=== PATIENT | female | born 1975 | race Caucasian/White ===

== ENCOUNTER 2023-02-20 10:41 | Outpatient (CLI) | payer BC, SELFPAY ==
--- NOTE | 2023-02-26 11:39 | WPDHOLTEREM ---
Holter/Event Monitor Holter/Event Monitor Date of procedure: 02/20/23 Holter/Event Procedure: 48 Hr Holter Monitor Indications: Tachycardia Conclusion: 1. 48 hour holter monitor on 02/20/23. 2. Underlying rhythm is sinus rhythm. HR range 51-141 bpm; average HR 83 bpm. HR at 141 bpm was at 18:59. 3. There are 13 premature supraventricular complexes and 1 supraventricular couplet. No supraventricular tachycardia. 4. No premature ventricular complexes. No ventricular tachycardia. 5. No sinoatrial or atrioventricular blocks. No significant pauses greater than 2 seconds. 6. Patient reports symptoms of chest pain, shortness of breath, rapid heart rate, and panic attack which demonstrate sinus rhythm, HR range 77-103 bpm.
== END 2023-02-20 10:42 | disposition home or self-care (01) ==
LOC: ANHCARD 10:42
PROVIDERS: PCP Family Medicine; Visit Provider Family Medicine
DX: R00.0 Tachycardia, unspecified (principal)
CPT/HCPCS: 93225; 93226

== ENCOUNTER 2023-03-16 15:36 | Emergency (ER) | payer BC, SELFPAY ==
--- NOTE | ~2023-03-16 | CT_ITS ---
EXAMINATION: 1. CT brain wo con 2. CT orbit bilateral without contrast DATE: 03/16/2023 16:41 INDICATION: Baseball injury, left orbit TECHNIQUE: Computed tomography (CT) of the head was performed without intravenous contrast. CT of the orbits bones was performed without intravenous contrast. Automated exposure control and iterative re construction technique were employed. The dose-length product was 529.67 (accession [id number]), 139.14 (accession [id number]) mGy-cm. COMPARISON: None. FINDINGS: BRAIN: No acute intracranial hemorrhage or extra-axial fluid collection. No hydrocephalus, mass, or herniation. No acute ischemic infarct detected. Unremarkable dural venous sinus attenuation. No acute osseous abnormality. Clear visualized paranasal sinuses and tympanomastoid cavities. FACE: Soft Tissues: No significant superficial soft tissue swelling. Facial bones: No evidence of an acute fracture in the visualized facial bones. Orbits: No evidence of an acute fracture. The globes are intact. The soft tissue planes of the orb its are maintained. Paranasal Sinuses: The paranasal sinuses are clear. Foreign Bodies: No evidence of radiopaque foreign bodies. Other: No evidence of a remote fracture. No lytic or blastic process seen in the facial bones. IMPRESSION: No acute intracranial process. No acute facial bone fracture. Reviewed, dictated and finalized at location K. IMPRESSION: No acute intracranial process. No acute facial bone fracture.
[2023-03-16 15:40] VITALS: BP 130/72; PULSE 95; RESP 15; TEMP 36.3; O2SAT 100
--- NOTE | 2023-03-16 16:05 | ED.EYEPROB ---
HPI - Eye Problem General Chief complaint: Eye Problems Stated complaint: Eye injury Time Seen by Provider: 03/16/23 16:10 Source: patient and family Mode of arrival: ambulatory Limitations: no limitations History of Present Illness HPI Narrative: 47 years old white female came to the emergency room complaining of left frontal headache and left eye pain. Patient got hit by a baseball to the left eye, sunglasses was on, did not break, fell off her face after the hit. Patient denies loss of consciousness or other injuries. Patient got panicky and had Xanax immediately prior to arrival. Related Data Home Medications Medication Instructions Recorded Confirmed amitriptyline 50 mg tablet 50 mg PO QHS 03/01/21 01/27/23 indomethacin 50 mg capsule 100 mg PO .prn 03/01/21 01/27/23 tizanidine 2 mg tablet 2 mg PO .prn 03/01/21 01/27/23 rimegepant 75 mg disintegrating 75 mg PO ONCE PRN 08/20/21 01/27/23 tablet (Nurtec ODT) escitalopram oxalate 5 mg tablet 5 mg PO DAILY 01/27/23 01/27/23 (Lexapro) Allergies Allergy/AdvReac Type Severity Reaction Status Date / Time prednisone Allergy Unknown UNKNOWN Verified 01/27/23 12:00 pregabalin Allergy Unknown UNKNOWN Verified 01/27/23 12:00 Review of Systems Review of Systems: All systems reviewed & are unremarkable except as noted in HPI and below PMFSH Past Medical History Medical History Body mass index [BMI] 25.0-25.9, adult (12/03/16) Chronic constipation Encounter for screening examination for sexually transmitted disease Erythromelalgia History of Chiari malformation Idiopathic chronic cold agglutinin disease Migraine syndrome Occipital neuralgia of left side Panic disorder with agoraphobia Remove/insert IUD Screening mammogram for breast cancer Screening mammogram, encounter for Surgical History Surgical History H/O adenoidectomy History of gynecological procedure (05/23/17) mirena iud insertion Hx of tonsillectomy Status post lumbar spine operative procedure for decompression of spinal cord 2006 Family History Family History Mother Diabetes mellitus CMT (cervical motion tenderness) Sibling Diabetes mellitus Lupus Grandparent Diabetes mellitus Cerebrovascular accident Grandparent Heart disease ALS (amyotrophic lateral sclerosis) Other Family history of amyotrophic lateral sclerosis Family history of malignant neoplasm Family history of malignant neoplasm of ovary Social History Social History Smoking status: Former smoker Smoking end date: 06/09/98 Alcohol intake: former Substance use: never Substance use type: does not use Lack of Transportation: No Lack of Food: Never True Current Housing: I Have Housing Concerned About Future Housing: No Difficulty Paying Gas/Electric Bills: No Difficulty Paying for Meds: No Currently Unemployed: No Education: Bachelor's Degree Difficulty w/ Childcare or Family Care: No Living arrangements: other Additional living arrangements comments: spouse Occupation/Education: occupation 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 Musculoskeletal: Normal range of yue
[2023-03-16] MEDS: IBUPROFEN 400 MG TABLET PO (16:55)
[2023-03-16] MEDS: ONDANSETRON HCL ODT 4 MG TABLET PO (16:56)
[2023-03-16] MEDS: HYDROcodone/acetaminophen (*CRX) 5-325 MG TABLET 1 TAB PO (16:56)
== END 2023-03-16 17:31 | disposition home or self-care (01) ==
PROVIDERS: Emergency Provider Emergency Medicine; PCP Family Medicine
DX: S05.92XA Unspecified injury of left eye and orbit, initial encounter (principal); R51.9 Headache, unspecified; I73.81 Erythromelalgia; D59.12 Cold autoimmune hemolytic anemia; F40.01 Agoraphobia with panic disorder; Z87.891 Personal history of nicotine dependence; W21.03XA Struck by baseball, initial encounter
CPT/HCPCS: 70450; 70480; 99284; A9270

== ENCOUNTER 2023-04-04 08:33 | Outpatient (CLI) | payer BC, SELFPAY ==
--- NOTE | 2023-04-04 08:45 | ECHO_ITS ---
Patient Info Name: Florence Valadez Age: 47 years : 1975 Gender: Female Ht: 62 in Wt: 150 lbs BSA: 1.74 m2 HR: 78 bpm BP: 125 / 71 mmHg Technical Quality: Fair Exam Date: 04/04/2023 9:02 AM Exam Location: [facility] Patient Status: Outpatient Admit Date: 04/04/2023 Staff Ordering Physician: Kye iKng DO Information Security Associate: Teresa Whitfield RDCS Attending Provider: Kye King DO Referring Physician: Christine STORM; Exam Type: CA echo doppler color flow Study Info Indications R00.0 - Tachycardia, unspecified Complete two-dimensional, color flow and Doppler transthoracic echocardiogram is performed. Summary 1. Complete two-dimensional, color flow and Doppler transthoracic echocardiogram is performed. 2. Left ventricular chamber dimension is normal. 3. Left ventricular systolic function is normal, estimated at 60-65%. 4. The left ventricular diastolic function is grade I diastolic dysfunction. 5. E/e' 8 is minimally elevated. 6. Global longitudinal strain is normal at -19.5%. 7. There is trace mitral valve regurgitation. 8. There is trace tricuspid valve regurgitation. 9. No pulmonary hypertension, estimated pulmonary arterial systolic pressure is 36 mmHg. 10. There is trace pulmonic regurgitation. 11. There is trivial pericardial effusion. Left Ventricle E/e' 8 is minimally elevated. Global longitudinal strain is normal at -19.5%. Left ventricular chamber dimension is normal. Left ventricular systolic function is normal, estimated at 60-65%. The left ventricular diastolic function is grade I diastolic dysfunction. Right Ventricle Right ventricular chamber dimension is normal. Right ventricular systolic function is normal. Left Atria Left atrial chamber dimension is normal. Right Atria Right atrial chamber dimension is normal. Aortic Valve The aortic valve is trileaflet. There is no aortic valve stenosis. There is no aortic valve regurgitation. Pulmonic Valve There is trace pulmonic regurgitation. Mitral Valve There is no mitral valve stenosis. There is trace mitral valve regurgitation. Tricuspid Valve There is trace tricuspid valve regurgitation. No pulmonary hypertension, estimated pulmonary arterial systolic pressure is 36 mmHg. Pericardium/Pleural There is trivial pericardial effusion. Inferior Vena Cava Normal inferior vena cava with >50% collapse upon inspiration consistent with normal right atrial pressure, 5 mmHg. Aorta The aortic root size at the sinus of Valsalva is normal. Left Ventricular Outflow Tract Name Value Normal LVOT 2D LVOT Diameter 2.0 cm LVOT Doppler LVOT Peak Gradient 5 mmHg LVOT Mean Gradient 3 mmHg LVOT VTI 23 cm LVOT VTI/AV VTI Ratio 0.9 LVOT Stroke Volume 69 ml LVOT CO 15.9 l/min LVOT CI 9.1 l/min/m2 Pulmonic Valve Name Value Normal
== END 2023-04-04 08:34 | disposition home or self-care (01) ==
LOC: ANHCARD 08:35
PROVIDERS: PCP Family Medicine; Visit Provider Family Medicine
DX: R00.0 Tachycardia, unspecified (principal)
CPT/HCPCS: 93306

== ENCOUNTER 2023-04-07 10:11 | Outpatient (CLI) | payer BC, SELFPAY ==
[2023-04-07 13:28] LABS: Alanine Aminotransferase 21 U/L (6-35); Albumin Level 4.3 g/dL (3.5-5.1); Alkaline Phosphatase 83 U/L (38-126); Anion Gap 6 mmol/L (8-16); Aspartate Amino Transferase 33 U/L (14-36); Bilirubin,Total 0.5 mg/dL (0.2-1.3); Blood Urea Nitrogen 14 mg/dL (7-17); Calcium 9.3 mg/dL (8.4-10.2); Carbon Dioxide 30 mmol/L (22-30); Chloride 101 mmol/L (98-107); Cholesterol 212 mg/dL (0-200); Estimated Glomerular Filt Rate > 60; Glucose 85 mg/dL (65-110); HDL Direct 49 mg/dL; Magnesium 2.2 mg/dL (1.6-2.3); Potassium 4.4 mmol/L (3.4-5.0); Sodium 137 mmol/L (137-145); Triglycerides 37 mg/dL (<150)
[2023-04-07 13:48] LABS: LDL Cholesterol Direct 129 mg/dL
[2023-04-07 13:50] LABS: Thyroid Stimulating Hormone Reflex 0.862 uIU/mL (0.465-4.68)
== END 2023-04-07 10:12 | disposition home or self-care (01) ==
LOC: ANHGOSHLAB 10:12
PROVIDERS: PCP Family Medicine; Visit Provider Family Medicine
DX: Z13.228 Encounter for screening for other metabolic disorders (principal); Z13.220 Encounter for screening for lipoid disorders; Z13.29 Encounter for screening for other suspected endocrine disorder; R00.0 Tachycardia, unspecified
CPT/HCPCS: 36415; 80053; 80061; 83735; 84443

== ENCOUNTER 2023-07-26 16:11 | Emergency (ER) | payer BC, SELFPAY ==
[2023-07-26 16:20] VITALS: BP 132/84; PULSE 86; RESP 17; TEMP 36.1; O2SAT 99
--- NOTE | 2023-07-26 16:42 | ED.URI ---
HPI - URI/Sore Throat General Chief Complaint: Upper Respiratory Infection Stated Complaint: Congestion, fever Time Seen by Provider: 07/26/23 16:25 Source: patient and RN notes reviewed Mode of arrival: ambulatory Limitations: no limitations History of Present Illness HPI Narrative: Patient presents today with a 3 day history of sore throat, fever up to 100.5, congestion, sinus headache, and dry cough. She has been taking Sudafed PE and Tylenol without much relief. Currently rates her pain 8/10. Patient had COVID-19 in May Related Data Home Medications Medication Instructions Recorded Confirmed indomethacin 50 mg capsule 100 mg PO .prn 03/01/21 07/26/23 tizanidine 2 mg tablet 2 mg PO .prn 03/01/21 07/26/23 rimegepant 75 mg disintegrating 75 mg PO ONCE 08/20/21 07/26/23 tablet (Nurtec ODT) amitriptyline 50 mg tablet 0.5 mg PO QHS 04/07/23 07/26/23 fluoxetine 10 mg capsule (Prozac) 30 mg PO DAILY 04/07/23 07/26/23 Allergies Allergy/AdvReac Type Severity Reaction Status Date / Time prednisone Allergy Unknown UNKNOWN Verified 07/26/23 16:22 pregabalin Allergy Unknown UNKNOWN Verified 07/26/23 16:22 Review of Systems Review of Systems: CONSTITUTIONAL: Denies body aches, chills, or sweats.+ fever EYES: Denies visual changes, redness, or discharge. ENT: Denies rhinorrhea, or otalgia.+ congestion, sore throat CARDIOVASCULAR: Denies chest pain, palpitations, or edema. RESPIRATORY: Denies dyspnea.+ cough GASTROINTESTINAL: Denies abdominal pain, nausea, vomiting, or diarrhea. GENITOURINARY: Denies dysuria or hematuria. SKIN: Denies rash, itching, or wounds. MUSCULOSKELETAL: Denies back pain, joint pain, or myalgia. NEUROLOGIC: Denies numbness, tingling, or weakness.+ headache PSYCH: Denies depression or anxiety. [facility] Past Medical History Medical History Body mass index [BMI] 25.0-25.9, adult (12/03/16) Chronic constipation Encounter for screening examination for sexually transmitted disease Erythromelalgia History of Chiari malformation Idiopathic chronic cold agglutinin disease Migraine syndrome Occipital neuralgia of left side Panic disorder with agoraphobia Remove/insert IUD Screening mammogram for breast cancer Screening mammogram, encounter for Surgical History Surgical History H/O adenoidectomy History of gynecological procedure (05/23/17) mirena iud insertion Hx of tonsillectomy Status post lumbar spine operative procedure for decompression of spinal cord 2006 Family History Family History Mother Diabetes mellitus CMT (cervical motion tenderness) Sibling Diabetes mellitus Lupus Grandparent Diabetes mellitus Cerebrovascular accident Grandparent Heart disease ALS (amyotrophic lateral sclerosis) Other Family history of amyotrophic lateral sclerosis Family history of malignant neoplasm Family history of malignant neoplasm of ovary Social History Social History Smoking status: Former smoker Smoking end date: 06/09/98 Alcohol intake: former Substance use: never Substance use type: does not use Do You Feel Safe in your Home?: Yes Lack of Transportation: No Lack of Food: Never True Current Housing: I Have Housing Concerned About Future Housing: No Difficulty Paying Gas/Electric Bills: No Difficulty Paying for Meds: No Currently Unemployed: No Education: Bachelor's Degree Difficulty w/ Childcare or Family Care: No Living arrangements: other Additional living arrangements comments: spouse Occupation/Education: occupation Additional occupation/education comments: [employer] Gender identity (if verbalized by the patient): Female Sexual Orientation (if Verbalized by the Patient): Zhao
== END 2023-07-26 16:48 | disposition home or self-care (01) ==
PROVIDERS: Emergency Provider Nurse Practitioner; PCP Family Medicine
DX: J06.9 Acute upper respiratory infection, unspecified (principal); Z87.891 Personal history of nicotine dependence
CPT/HCPCS: 99211; G0463

== ENCOUNTER 2024-02-18 13:02 | Outpatient (CLI) | payer BC, SELFPAY | END 2024-02-18 13:03 | disposition home or self-care (01) | LOC: ANHAUDASC 13:03 | PROVIDERS: PCP Family Medicine; Visit Provider Otolaryngology | DX: H90.3 Sensorineural hearing loss, bilateral (principal); H69.90 Unspecified Eustachian tube disorder, unspecified ear; H93.A2 Pulsatile tinnitus, left ear | CPT/HCPCS: 92557; 92567 ==

== ENCOUNTER 2024-06-07 09:38 | Outpatient (CLI) | payer BC, SELFPAY ==
[2024-06-07 20:48] LABS: Alanine Aminotransferase 22 U/L (6-35); Albumin Level 4.1 g/dL (3.5-5.1); Alkaline Phosphatase 87 U/L (38-126); Anion Gap 3 mmol/L (4-12); Aspartate Amino Transferase 35 U/L (14-36); Bilirubin,Total 0.5 mg/dL (0.2-1.3); Blood Urea Nitrogen 14 mg/dL (7-17); Calcium 9.5 mg/dL (8.4-10.2); Carbon Dioxide 32 mmol/L (22-30); Chloride 102 mmol/L (98-107); Cholesterol 208 mg/dL (0-200); Estimated Glomerular Filt Rate > 60; Glucose 70 mg/dL (65-110); HDL Direct 48 mg/dL; Potassium 4.5 mmol/L (3.4-5.0); Sodium 137 mmol/L (137-145); Triglycerides 52 mg/dL (<150)
[2024-06-07 20:59] LABS: LDL Cholesterol Direct 119 mg/dL
[2024-06-07 22:51] LABS: Thyroid Stimulating Hormone Reflex 0.853 uIU/mL (0.465-4.68)
== END 2024-06-07 09:39 | disposition home or self-care (01) ==
LOC: ANHGOSHLAB 09:38
PROVIDERS: PCP Family Medicine; Visit Provider Family Medicine
DX: Z13.220 Encounter for screening for lipoid disorders (principal); Z13.228 Encounter for screening for other metabolic disorders; Z13.29 Encounter for screening for other suspected endocrine disorder
CPT/HCPCS: 36415; 80053; 80061; 84443

== ENCOUNTER 2025-04-29 02:57 | Day surgery (SDC) | payer OTHER, SELFPAY ==
[2025-04-12 13:31] VITALS: BMI 27.3
[2025-04-29 10:33] VITALS: BP 112/70; PULSE 93; RESP 15; TEMP 36.5; O2SAT 100; BMI 28.2
[2025-04-29] MEDS: LACTATED RINGERS 1,000 ML 150 ML IV CONT (10:45)
--- NOTE | 2025-04-29 10:53 | WPDANESEPPF ---
Anes - Initial Pre Proc Eval Procedure: Operation Date: 04/29/25 11:30 Proposed Procedures p Screening Colonoscopy - Rambo Crum MD Date/Time: 04/29/25 10:53 Surgeon: Rambo Crum MD Pre Op Diagnosis: screening Patient Data Age: 49 Gender: F Height: 1.57 m Weight: 70 kg Last Vital Signs Temp 36.5 C 04/29/25 10:33 Pulse 93 04/29/25 10:33 Resp 15 04/29/25 10:33 BP 112/70 04/29/25 10:33 Pulse Ox 100 04/29/25 10:33 O2 Del Method Room Air 04/29/25 10:33 Allergies Allergy/AdvReac Type Severity Reaction Status Date / Time prednisone Allergy Unknown tachycardia Verified 04/29/25 10:31 pregabalin Allergy Unknown tachycardia Verified 04/29/25 10:31 Home Medications ?Medication ?Instructions ?Recorded ?Confirmed ?Type tizanidine 2 mg tablet 2 mg PO .prn 03/01/21 04/29/25 History amitriptyline 50 mg tablet 0.5 mg PO QHS 04/07/23 04/29/25 History alprazolam 0.5 mg tablet 0.5 mg PO DAILY PRN anxiety #30 10/20/23 04/29/25 Rx tabs rimegepant 75 mg disintegrating 75 mg PO .PRN 02/02/24 04/29/25 History tablet (Nurtec ODT) cholecalciferol (vitamin D3) 25 25 mcg PO DAILY 10/27/24 04/29/25 History mcg (1,000 unit) capsule indomethacin 50 mg capsule 50 mg PO .prn 10/27/24 04/29/25 History magnesium 250 mg tablet 250 mg PO DAILY 10/27/24 04/29/25 History melatonin 3 mg capsule 3 mg PO QHS 10/27/24 04/29/25 History nutritional supplement-fiber oral 1 ea PO DAILY PRN bowel regularity 10/27/24 04/29/25 History liquid estradiol 0.5 mg tablet 1 mg (2 x 0.5 mg) PO DAILY #90 tabs 12/14/24 04/29/25 Rx buspirone 15 mg tablet 15 mg PO BID 03/02/25 04/29/25 History Zepbound 2.5 mg/0.5 mL 2.5 mg (0.5 mL) subcut WEEKLY #2 mL 04/11/25 04/29/25 Rx subcutaneous pen injector (tirzepatide (weight loss)) Patient hx anesthesia problems: none Family hx anesthesia problems: none Results Review: All pre-operative results and documents have been reviewed as part of the pre-operative evaluation. [facility] Past Medical History Medical History Pulsatile tinnitus of left ear Sensorineural hearing loss of combined sites, bilateral Chronic eustachian tube dysfunction Screening mammogram for breast cancer Remove/insert IUD Encounter for screening examination for sexually transmitted disease Screening mammogram, encounter for Body mass index [BMI] 25.0-25.9, adult (12/03/16) Chronic constipation Erythromelalgia History of Chiari malformation Idiopathic chronic cold agglutinin disease Migraine syndrome Occipital neuralgia of left side Panic disorder with agoraphobia Surgical History Surgical History History of gynecological procedure (05/23/17) mirena iud insertion Status post lumbar spine operative procedure for decompression of spinal cord 2006 H/O adenoidectomy Hx of tonsillectomy Family History Family History Mother Diabetes mellitus CMT (cervical motion tenderness) Sibling Diabetes mellitus Lupus Grandparent Diabetes mellitus Cerebrovascular accident Grandparent Heart disease ALS (amyotrophic lateral sclerosis) Other Family history of amyotrophic lateral sclerosis Family history of malignant neoplasm Family history of malignant neoplasm of ovary Social History Social History Smoking status: Former smoker Second hand tobacco smoke exposure: No Smoking end date: 06/09/98 Alcohol intake: former Substance use: never Substance use type: does not use Do You Feel Safe in your Home?: Yes Lack of Transportation: No Lack of Food: Never True Current Housing: I Have Housing Concerned About Future Housing: No Difficulty Paying Gas/Electric Bills: No Difficulty Paying for Meds: No Currently Unemployed: Decline to Answer Education: Bachelor's Degree Difficulty w/ Childcare or Family Care: No Living arrangements: with family Additional living arrangements comments: spouse Occupation/Education: occupation 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 Gender identity (if verbalized by the patient): Female Sexual Orientation (if Verbalized by the Patient): Straight or Heterosexual Spiritual care concerns: No Anes - Eval Final PreProcedure Day of Procedure 04/29/25 10:53 Patient weight: normal Heart: regular rate and rhythm Lungs: clear to auscultation Airway: Mallampati scale class II Neurological: alert and oriented Last oral intake: >/= 8 hours ASA classification: III Emergent: no Anesthetic plan: proceed Anesthesia type and monitoring: general GIVS and standard monitoring Results Review: All pre-operative results and documents have been reviewed as part of the pre-operative evaluation. Informed Consent: The patient's anesthetic plan and its attendant risks and benefits were discussed with the patient/family/POA. Questions were solicited and answers provided to the satisfaction of the patient/family/POA.
--- NOTE | 2025-04-29 11:32 | PM.IMHP ---
H&P: HPI History of Present Illness Date/Time: 04/29/25 11:32 Chief Complaint: Screening colonoscopy Narrative: This is the patient's first colonoscopy. There are no GI symptoms and there is no family history of colorectal cancer. Review of Systems Review of Systems: All systems reviewed & are unremarkable except as noted in HPI and below PMFSH Past Medical History Medical History Pulsatile tinnitus of left ear Sensorineural hearing loss of combined sites, bilateral Chronic eustachian tube dysfunction Screening mammogram for breast cancer Remove/insert IUD Encounter for screening examination for sexually transmitted disease Screening mammogram, encounter for Body mass index [BMI] 25.0-25.9, adult (12/03/16) Chronic constipation Erythromelalgia History of Chiari malformation Idiopathic chronic cold agglutinin disease Migraine syndrome Occipital neuralgia of left side Panic disorder with agoraphobia Surgical History Surgical History History of gynecological procedure (05/23/17) mirena iud insertion Status post lumbar spine operative procedure for decompression of spinal cord 2006 H/O adenoidectomy Hx of tonsillectomy Family History Family History Mother Diabetes mellitus CMT (cervical motion tenderness) Sibling Diabetes mellitus Lupus Grandparent Diabetes mellitus Cerebrovascular accident Grandparent Heart disease ALS (amyotrophic lateral sclerosis) Other Family history of amyotrophic lateral sclerosis Family history of malignant neoplasm Family history of malignant neoplasm of ovary Social History Social History Smoking status: Former smoker Second hand tobacco smoke exposure: No Smoking end date: 06/09/98 Alcohol intake: former Substance use: never Substance use type: does not use Do You Feel Safe in your Home?: Yes Lack of Transportation: No Lack of Food: Never True Current Housing: I Have Housing Concerned About Future Housing: No Difficulty Paying Gas/Electric Bills: No Difficulty Paying for Meds: No Currently Unemployed: Decline to Answer Education: Bachelor's Degree Difficulty w/ Childcare or Family Care: No Living arrangements: with family Additional living arrangements comments: spouse Occupation/Education: occupation 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 Gender identity (if verbalized by the patient): Female Sexual Orientation (if Verbalized by the Patient): Straight or Heterosexual Spiritual care concerns: No Meds Home Medications and Allergies Home Medications ?Medication ?Instructions ?Recorded ?Confirmed ?Type tizanidine 2 mg tablet 2 mg PO .prn 03/01/21 04/29/25 History amitriptyline 50 mg tablet 0.5 mg PO QHS 04/07/23 04/29/25 History alprazolam 0.5 mg tablet 0.5 mg PO DAILY PRN anxiety #30 10/20/23 04/29/25 Rx tabs rimegepant 75 mg disintegrating 75 mg PO .PRN 02/02/24 04/29/25 History tablet (Nurtec ODT) cholecalciferol (vitamin D3) 25 25 mcg PO DAILY 10/27/24 04/29/25 History mcg (1,000 unit) capsule indomethacin 50 mg capsule 50 mg PO .prn 10/27/24 04/29/25 History magnesium 250 mg tablet 250 mg PO DAILY 10/27/24 04/29/25 History melatonin 3 mg capsule 3 mg PO QHS 10/27/24 04/29/25 History nutritional supplement-fiber oral 1 ea PO DAILY PRN bowel regularity 10/27/24 04/29/25 History liquid estradiol 0.5 mg tablet 1 mg (2 x 0.5 mg) PO DAILY #90 tabs 12/14/24 04/29/25 Rx buspirone 15 mg tablet 15 mg PO BID 03/02/25 04/29/25 History Zepbound 2.5 mg/0.5 mL 2.5 mg (0.5 mL) subcut WEEKLY #2 mL 04/11/25 04/29/25 Rx subcutaneous pen injector (tirzepatide (weight loss)) Allergies Allergy/AdvReac Type Severity Reaction Status Date / Time prednisone Allergy Unknown tachycardia Verified 04/29/25 10:31 pregabalin Allergy Unknown tachycardia Verified 04/29/25 10:31 Vital Signs Vital Signs - 24 hr 04/29/25 10:33 Temperature 97.7 F Pulse Rate 93 Respiratory Rate 15 Blood Pressure 112/70 Pulse Oximetry 100 Oxygen Delivery Room Air Exam Const: General: cooperative and healthy appearing Resp: Effort & Inspection: normal respiratory effort and able to speak in complete sentences Auscultation: clear to auscultation bilaterally Cardio: Rate: regular rate Rhythm: regular rhythm GI: Inspection: normal to inspection GI Palp: No No hepatosplenomegaly present Auscultation: normal bowel sounds Rectal Exam: deferred Skin: General skin exam: normal color Psych: Appearance: grossly normal Mental Status: mental status grossly normal Assessment and Plan Assessment and plan (1) Screening for colon cancer: Code(s): Z12.11 - Encounter for screening for malignant neoplasm of colon Status: Acute Assessment and Plan: The patient is deemed a good candidate for the procedure. Consent signed. Will proceed.
[2025-04-29 11:52] VITALS: BP 95/54; PULSE 91; RESP 19; O2SAT 100
[2025-04-29 12:02] VITALS: BP 104/58; PULSE 86; RESP 17; O2SAT 100
[2025-04-29 12:12] VITALS: BP 110/62; PULSE 82; RESP 20; O2SAT 100
[2025-05-02 11:46] LABS: BEDSIDEPREGUCG Negative (Negative)
== END 2025-04-29 12:15 | disposition home or self-care (01) ==
PROVIDERS: PCP Clinical Nurse Specialist; Referring Provider Clinical Nurse Specialist; Visit Provider Internal Medicine Gastroenterology
PROC: 0DJD8ZZ Inspection of Lower Intestinal Tract, Via Natural or Artificial Opening Endoscopic (ICD-10-PCS; CPT 45378; principal; 2025-04-29 11:30)
DX: Z12.11 Encounter for screening for malignant neoplasm of colon (principal); H90.3 Sensorineural hearing loss, bilateral; H69.80 Other specified disorders of Eustachian tube, unspecified ear; K59.09 Other constipation; D59.12 Cold autoimmune hemolytic anemia; G43.909 Migraine, unspecified, not intractable, without status migrainosus; F40.01 Agoraphobia with panic disorder; Z79.85 Long-term (current) use of injectable non-insulin antidiabetic drugs; Z98.890 Other specified postprocedural states; Z98.1 Arthrodesis status; Z87.891 Personal history of nicotine dependence; Z87.798 Personal history of other (corrected) congenital malformations; Z80.41 Family history of malignant neoplasm of ovary; Z82.49 Family history of ischemic heart disease and other diseases of the circulatory system
CPT/HCPCS: 45378; J2003; J2704; J7120